=== PATIENT | male | born 1985 | race Caucasian/White ===

== ENCOUNTER 2016-10-01 18:01 | Emergency (ER) | payer MEDICAID ==
[~2016-10-01] VITALS: Ht 185.4 cm; Wt 92.4 kg
[2016-10-01 18:05] VITALS: BP 113/79
== END 2016-10-01 19:30 | disposition home or self-care (01) ==
LOC: ED 19:24
DX: M62.830 Muscle spasm of back (principal)
CPT/HCPCS: 99283

== ENCOUNTER 2017-01-03 15:46 | Emergency (ER) | payer MEDICAID ==
[~2017-01-03] VITALS: Ht 185.4 cm; Wt 94.2 kg
[2017-01-03 15:48] VITALS: BP 127/91
[2017-01-03] MEDS ORDERED: NAPR220C2 PO (16:03)
== END 2017-01-03 16:35 | disposition home or self-care (01) ==
LOC: ED 16:31
DX: F41.1 Generalized anxiety disorder (principal); I10 Essential (primary) hypertension
CPT/HCPCS: 99284

== ENCOUNTER 2017-03-28 08:41 | Emergency (ER) | payer MEDICAID ==
[~2017-03-28] VITALS: Ht 185.4 cm; Wt 97.7 kg
[~2017-03-28 08:41] MED LIST: NAPR220C2 PO
[2017-03-28] MEDS ORDERED: METH40TA3 PO (08:56)
[2017-03-28 09:31] LABS: BASOPHILS # (AUTO) 0.02 x10^3/uL (0-0.1); BASOPHILS % (AUTO) 1 % (0-1); EOSINOPHILS # (AUTO) 0.11 x10^3/uL (0-0.4); EOSINOPHILS % (AUTO) 3 % (1-7); LYMPHOCYTES # (AUTO) 1.54 x10^3/uL (1-3.4); LYMPHOCYTES % (AUTO) 37 % (22-44); MD NO; MEAN CORPUSCULAR HEMOGLOBIN 27.8 pg (27.5-34.5); MEAN CORPUSCULAR HGB CONC 33.2 g/dL (33.2-36.2); MEAN CORPUSCULAR VOLUME 83.9 fL (81-97); MONOCYTES % (AUTO) 12 % (2-9); NEUTROPHILS % (AUTO) 48 % (42-75); PLATELET COUNT 208 x10^3/uL (130-400); RED BLOOD COUNT 4.76 x10^6/uL (4.38-5.82); RED CELL DISTRIBUTION WIDTH 13.6 % (9.4-14.8)
[2017-03-28 09:41] VITALS: BP 117/83
[2017-03-28 09:43] LABS: ALANINE AMINOTRANSFERASE 30 U/L (12-78); ANION GAP 7 mmol/L (5-15); CALCIUM 8.8 mg/dL (8.5-10.1); CHLORIDE 105 mmol/L (98-107); CREATININE 1.09 mg/dL (0.7-1.3)
[2017-03-28 09:48] LABS: ALKALINE PHOSPHATASE 113 U/L (45-117); BILIRUBIN,TOTAL 0.3 mg/dL (0.2-1.0); TOTAL PROTEIN 7.9 g/dL (6.4-8.2); TROPONIN I < 0.015 ng/mL (0.000-0.045)
== END 2017-03-28 10:40 | disposition home or self-care (01) ==
LOC: ED 09:49
DX: R07.89 Other chest pain (principal); R61 Generalized hyperhidrosis; I10 Essential (primary) hypertension
CPT/HCPCS: 36415; 71045; 80053; 84484; 85025; 93005; 99285